=== PATIENT | male | born 1955 | race Caucasian/White ===

== ENCOUNTER 2017-12-09 22:41 | Emergency (ER) | payer OTHER ==
[~2017-12-09] VITALS: Ht 172.7 cm; Wt 77.0 kg
[2017-12-09 23:46] VITALS: BP 178/81; PULSE 66; RESP 18; TEMP 98.2; O2SAT 97
[2017-12-10] MEDS ORDERED: OMEP40CA2 (00:20)
[2017-12-10] MEDS ORDERED: TRAZ50TA12 PO (00:20)
[2017-12-10] MEDS ORDERED: LEVO50TA4 PO (00:20)
[2017-12-10] MEDS ORDERED: NALT50TA3 PO (00:20)
[2017-12-10] MEDS ORDERED: MELA5 PO (00:20)
[2017-12-10 00:31] LABS: AUTOMATED NEUTROPHIL # 2.5 TH/MM3 (1.8-7.7); BASOPHIL % 0.9 % (0.0-2.0); EOSINOPHIL # 0.1 TH/MM3 (0-0.4); EOSINOPHIL % 1.6 % (0.0-4.0); HEMOGLOBIN 12.2 GM/DL (13.0-17.0); LYMPH % 38.7 % (9.0-44.0); LYMPHOCYTE # 1.8 TH/MM3 (1.0-4.8); MEAN CORPUSCULAR HEMOGLOBIN 25.6 PG (27.0-34.0); MEAN CORPUSCULAR HGB CONC 32.8 % (32.0-36.0); MEAN PLATELET VOLUME 7.2 FL (7.0-11.0); MONO % 5.3 % (0.0-8.0); MONOCYTE # 0.2 TH/MM3 (0-0.9); NEUT % 53.5 % (16.0-70.0); PLATELET COUNT 321 TH/MM3 (150-450); RED BLOOD COUNT 4.74 MIL/MM3 (4.50-5.90); RED CELL DISTRIBUTION WIDTH 17.2 % (11.6-17.2); WHITE BLOOD COUNT 4.7 TH/MM3 (4.0-11.0)
[2017-12-10 00:42] LABS: BILIRUBIN, URINE NEG (NEG); BLOOD, URINE NEG (NEG); GLUCOSE,URINE NEG (NEG); KETONE, URINE NEG (NEG); MUCUS URINE FEW /lpf (OCC); NITRITE,URINE NEG (NEG); PH, URINE 5.5 (5.0-8.5); SQUAMOUS EPITHELIAL CELL URINE <1 /hpf (0-5); TRANSITIONAL EPI CELLS, URINE <1 /hpf; URINE COLOR YELLOW (YELLW/STRAW); URINE LEUKOCYTE ESTERASE NEG (NEG)
[2017-12-10 00:53] LABS: ALBUMIN 3.9 GM/DL (3.4-5.0); ALT (GPT) 21 U/L (12-78); AST (GOT) 23 U/L (15-37); BICARBONATE 25.4 MEQ/L (21.0-32.0); BLOOD UREA NITROGEN 7 MG/DL (7-18); CALCIUM 8.1 MG/DL (8.5-10.1); CHLORIDE 104 MEQ/L (98-107); CREATININE 0.86 MG/DL (0.60-1.30); GLOMERULAR FILTRATION RATE 91 ML/MIN (>89); GLUCOSE,RANDOM 94 MG/DL (74-106); SODIUM (NA) 141 MEQ/L (136-145)
[2017-12-10 00:57] LABS: ALKALINE PHOSPHATASE 60 U/L (45-117); TOTAL BILIRUBIN ADULT 0.2 MG/DL (0.2-1.0); TOTAL PROTEIN 7.6 GM/DL (6.4-8.2)
[2017-12-10 05:47] VITALS: BP 128/79; PULSE 58; RESP 20; O2SAT 99
--- NOTE | 2017-12-10 05:49 | PD ---
HPI Chief Complaint: Psychiatric Symptoms Time Seen by Provider: 05:40 Travel History International Travel<30 days: No Contact w/Intl Traveler<30days: No Traveled to known affect area: No History of Present Illness HPI 62-year-old male presents under Ortega act initiated by the [employer]. According to his paperwork the patient made statements today that he wanted to . The patient reports that he recently moved here from [place]. Today he drinks heavily, approximately 1.5 pints of vodka. He was involved in an argument with his son while he was intoxicated. He does report passive suicidal thoughts earlier today but none currently. Denies any illicit drug use. Denies any hallucinations. He has no medical complaints at this time. [facility] Past Medical History Medical History: Denies Significant Hx Diminished Hearing: No ?: Not Past Surgical History Surgical History: No Previous Surgery Social History Alcohol Use: Yes Tobacco Use: No Substance Use: No Allergies-Medications (Allergen,Severity, Reaction): Coded Allergies: No Known Allergies (Unverified , 12/09/17) Reported Meds & Prescriptions Reported Meds & Active Scripts Active Reported Trazodone (Trazodone HCl) 50 Mg Tab 50 Mg PO HS Naltrexone (Naltrexone HCl) 50 Mg Tab 50 Mg PO DAILY Omeprazole 40 Mg Cap 40 Mg BID Levothyroxine (Levothyroxine Sodium) 50 Mcg Tab 50 Mcg PO DAILY Melatonin 5 Mg Tab 5 Mg PO HS Review of Systems Except as stated in HPI: all other systems reviewed are Neg Physical Exam Narrative GENERAL: Well-developed well-nourished male in no acute distress SKIN: Warm and dry. HEAD: Atraumatic. Normocephalic. EYES: Pupils equal and round. No scleral icterus. No injection or drainage. ENT: No nasal bleeding or discharge. Mucous membranes pink and moist. NECK: Trachea midline. No JVD. CARDIOVASCULAR: Regular rate and rhythm. No murmur appreciated. RESPIRATORY: No accessory muscle use. Clear to auscultation. Breath sounds equal bilaterally. GASTROINTESTINAL: Abdomen soft, non-tender, nondistended. Hepatic and splenic margins not palpable. MUSCULOSKELETAL: No obvious deformities. No clubbing. No cyanosis. No edema. NEUROLOGICAL: Awake and alert. No obvious cranial nerve deficits. Motor grossly within normal limits. Normal speech. PSYCHIATRIC: Appropriate mood and affect; insight and judgment normal. Data Data Last Documented VS Vital Signs Date Time Temp Pulse Resp B/P (MAP) Pulse Ox O2 Delivery O2 Flow Rate FiO2 12/09/17 23:46 98.2 66 18 178/81 (113) 97 Orders Orders Complete Blood Count With Diff (12/09/17 23:52) Comprehensive Metabolic Panel (12/09/17 23:52) Urinalysis - C+S If Indicated (12/09/17 23:52) Psych Screen (12/09/17 23:52) Drug Screen, Random Urine (12/09/17 23:52) Alcohol (Ethanol) (12/09/17 23:52) Labs Laboratory Tests Test 12/10/17 00:07 White Blood Count 4.7 TH/MM3 Red Blood Count 4.74 MIL/MM3 Hemoglobin 12.2 GM/DL Hematocrit 37.0 % Mean Corpuscular Volume 78.0 FL Mean Corpuscular Hemoglobin 25.6 PG Mean Corpuscular Hemoglobin Concent 32.8 % Red Cell Distribution Width 17.2 % Platelet Count 321 TH/MM3 Mean Platelet Volume 7.2 FL Neutrophils (%) (Auto) 53.5 % Lymphocytes (%) (Auto) 38.7 % Monocytes (%) (Auto) 5.3 % Eosinophils (%) (Auto) 1.6 % Basophils (%) (Auto) 0.9 % Neutrophils # (Auto) 2.5 TH/MM3 Lymphocytes # (Auto) 1.8 TH/MM3 Monocytes # (Auto) 0.2 TH/MM3 Eosinophils # (Auto) 0.1 TH/MM3 Basophils # (Auto) 0.0 TH/MM3 CBC Comment DIFF FINAL Differential Comment Urine Color YELLOW Urine Turbidity CLEAR Urine pH 5.5 Urine Specific [place] 1.009 Urine Protein NEG mg/dL Urine Glucose (UA) NEG mg/dL Urine Ketones NEG mg/dL Urine Occult Blood NEG Urine Nitrite NEG Urine Bilirubin NEG Urine Urobilinogen LESS THAN 2.0 MG/DL Urine Leukocyte Esterase NEG Urine RBC 1 /hpf Urine Squamous Epithelial Cells <1 /hpf Urine Transitional Epithelial Cells <1 /hpf Urine Mucus FEW /lpf Microscopic Urinalysis Comment CULT NOT INDICATED Blood Urea Nitrogen 7 MG/DL Creatinine 0.86 MG/DL Random Glucose 94 MG/DL Total Protein 7.6 GM/DL Albumin 3.9 GM/DL Calcium Level 8.1 MG/DL Alkaline Phosphatase 60 U/L Aspartate Amino Transf (AST/SGOT) 23 U/L Alanine Aminotransferase (ALT/SGPT) 21 U/L Total Bilirubin 0.2 MG/DL Sodium Level 141 MEQ/L Potassium Level 3.9 MEQ/L Chloride Level 104 MEQ/L Carbon Dioxide Level 25.4 MEQ/L Anion Gap 12 MEQ/L Estimat Glomerular Filtration Rate 91 ML/MIN Urine Opiates Screen NEG Urine Barbiturates Screen NEG Urine Amphetamines Screen NEG Urine Benzodiazepines Screen NEG Urine Cocaine Screen NEG Urine Cannabinoids Screen NEG Ethyl Alcohol Level 291 MG/DL MDM Medical Decision Making Medical Screen Exam Complete: Yes Emergency Medical Condition: Yes Medical Record Reviewed: Yes Differential Diagnosis Substance-induced mood disorder, acute psychosis, major depressive disorder, depressive disorder not otherwise specified Narrative Course Mental health screening discussed with the patient. Psychiatric screen ordered. Lab work is notable for an alcohol level of 291. The patient is medically cleared for psychiatric disposition. Diagnosis Primary Impression: Alcohol abuse Sumanth Ruvalcaba Dec 10, 2017 05:49
[2017-12-10 10:00] VITALS: BP 135/65; PULSE 62; RESP 20; O2SAT 99
[2017-12-10 13:34] VITALS: BP 156/92; PULSE 72; RESP 18; O2SAT 96
--- NOTE | 2017-12-10 14:24 | PD ---
History of Present Illness Chief Complaint: Psychiatric Symptoms Time Seen by Provider: 14:15 Travel History International Travel<30 Days: No Contact w/Intl Traveler<30days: No Known affected area: No Legal Status Legal Status: Sell My Timeshare NOW Act History of Present Illness: History of Present Illness HPI 62-year-old male with no psychiatric history and history of alcohol dependence who presents under Ortega act initiated by the Police Department. According to his paperwork the patient made statements today that he wanted to . This in context of an argument with his son over the patient's continued use of alcohol. After the argument the patient was asked to leave the house. Patient admits that he had been drinking and his blood alcohol level upon arrival to the ED was 291. patient was allowed to sober up clinically. He presented no behavioral concerns and no suicidality. Electronic medical record is reviewed. No previous contact with [facility] psychiatry. The patient is seen in main ED. He is clinically sober. His speech is clear logical and coherent. There is no signs of withdrawal. There is no evidence of any psychosis, no stella or hypomania. He denies significant symptoms of depression. He states "apparently I said something about hurting myself but I don't remember much of what I said". He denies any suicidal or homicidal ideation, intent or plan. He states that he is on a waiting list for a home in [place] but the meanwhile he will like to look into sober living facilities here in [place]. In terms of his alcohol use he reports that he has a long history of alcohol abuse but that he has been sober on and off for the past several years. He states that he attends AA but continues to drink. He denies that he drinks on a daily basis. [facility] Past Medical History Medical History: Denies Significant Hx Diminished Hearing: No ?: Not Past Surgical History Surgical History: No Previous Surgery Psychiatric History Psychiatric History Hx Psychiatric Treatment: No previous psychiatric history History of Inpatient Treatment: No Guns or firearms in home: No Social History Born and raised in [place]. Moved to the area couple months ago to stay with his son. He works electronic parts salesperson doing odd jobs. . Hx Alcohol Use: Yes Hx Tobacco Use: No Hx Substance Use: No Substance Use Type: Alcohol Hx of Substance Use Treatment: Yes Family Psychiatric History Negative Allergies-Medications (Allergen,Severity, Reaction): Coded Allergies: No Known Allergies (Unverified , 12/09/17) Reported Meds & Prescriptions Reported Meds & Active Scripts Active Reported Trazodone (Trazodone HCl) 50 Mg Tab 50 Mg PO HS Naltrexone (Naltrexone HCl) 50 Mg Tab 50 Mg PO DAILY Omeprazole 40 Mg Cap 40 Mg BID Levothyroxine (Levothyroxine Sodium) 50 Mcg Tab 50 Mcg PO DAILY Melatonin 5 Mg Tab 5 Mg PO HS Review of Systems Psychiatric: DENIES: Anxiety, Confusion, Mood changes, Depression, Hallucinations, Agitation, Suicidal Ideation, Homicidal Ideation, Delusions Except as stated in HPI: all other systems reviewed are Neg Mental Status Examination Appearance: Appropriate Consciousness: Alert Motor Activity: Other (patient remained in bed) Speech: Unremarkable Language: Adequate Fund of Knowledge: Adequate Attention and Concentration: Adequate Memory: Unremarkable Mood: Appropriate Affect: Appropriate Thought Process & Associations: Intact, Logical, Goal directed Thought Content: Appropriate Hallucination Type: None Delusion Type: None Suicidal Ideation: No Suicidal Plan: No Suicidal Intention: No Homicidal Ideation: No Homicidal Plan: No Homicidal Intention: No Insight: Fair Judgment: Adequate MDM Medical Decision Making Medical Record Reviewed: Yes Assessment/Plan 62-year-old male with no psychiatric history and history of alcohol dependence who presents under Ortega act initiated by the Police Department. According to his paperwork the patient made statements today that he wanted to . This in context of an argument with his son over the patient's continued use of alcohol. After the argument the patient was asked to leave the house. Patient admits that he had been drinking and his blood alcohol level upon arrival to the ED was 291. patient was allowed to sober up clinically. He presented no behavioral concerns and no suicidality. Clinically sober. Not psychotic. Not suicdal. Wants substance abuse treatment. He would like referrals for sober living facilities as well as referral for where he can continue his Vivitrol injections. I have asked the case manager specialist to meet with him to provide him these referrals. Patient at this time does not meet criteria for Ortega act. Does not present evidence of any unstable mental illness. He is future oriented. He is wanting treatment. Lift Ortega act. Psychiatrically clear for discharge from the ED. Orders Orders Complete Blood Count With Diff (12/09/17 23:52) Comprehensive Metabolic Panel (12/09/17 23:52) Urinalysis - C+S If Indicated (12/09/17 23:52) Psych Screen (12/09/17 23:52) Drug Screen, Random Urine (12/09/17 23:52) Alcohol (Ethanol) (12/09/17 23:52) Diet Regular Basic (12/10/17 Breakfast) Results Vital Signs Date Time Temp Pulse Resp B/P (MAP) Pulse Ox O2 Delivery O2 Flow Rate FiO2 12/10/17 13:34 72 18 156/92 (113) 96 Room Air 12/10/17 10:00 62 20 135/65 (88) 99 Room Air 12/10/17 05:47 58 20 128/79 (95) 99 Room Air 12/09/17 23:46 98.2 66 18 178/81 (113) 97 Laboratory Tests Test 12/10/17 00:07 White Blood Count 4.7 Red Blood Count 4.74 Hemoglobin 12.2 Hematocrit 37.0 Mean Corpuscular Volume 78.0 Mean Corpuscular Hemoglobin 25.6 Mean Corpuscular Hemoglobin Concent 32.8 Red Cell Distribution Width 17.2 Platelet Count 321 Mean Platelet Volume 7.2 Neutrophils (%) (Auto) 53.5 Lymphocytes (%) (Auto) 38.7 Monocytes (%) (Auto) 5.3 Eosinophils (%) (Auto) 1.6 Basophils (%) (Auto) 0.9 Neutrophils # (Auto) 2.5 Lymphocytes # (Auto) 1.8 Monocytes # (Auto) 0.2 Eosinophils # (Auto) 0.1 Basophils # (Auto) 0.0 CBC Comment DIFF FINAL Differential Comment Urine Color YELLOW Urine Turbidity CLEAR Urine pH 5.5 Urine Specific [place] 1.009 Urine Protein NEG Urine Glucose (UA) NEG Urine Ketones NEG Urine Occult Blood NEG Urine Nitrite NEG Urine Bilirubin NEG Urine Urobilinogen LESS THAN 2.0 Urine Leukocyte Esterase NEG Urine RBC 1 Urine Squamous Epithelial Cells <1 Urine Transitional Epithelial Cells <1 Urine Mucus FEW Microscopic Urinalysis Comment CULT NOT INDICATED Blood Urea Nitrogen 7 Creatinine 0.86 Random Glucose 94 Total Protein 7.6 Albumin 3.9 Calcium Level 8.1 Alkaline Phosphatase 60 Aspartate Amino Transf (AST/SGOT) 23 Alanine Aminotransferase (ALT/SGPT) 21 Total Bilirubin 0.2 Sodium Level 141 Potassium Level 3.9 Chloride Level 104 Carbon Dioxide Level 25.4 Anion Gap 12 Estimat Glomerular Filtration Rate 91 Urine Opiates Screen NEG Urine Barbiturates Screen NEG Urine Amphetamines Screen NEG Urine Benzodiazepines Screen NEG Urine Cocaine Screen NEG Urine Cannabinoids Screen NEG Ethyl Alcohol Level 291 Diagnosis Primary Impression: Alcohol abuse Psychiatrically Cleared: Yes Med/ Other Pt Specific Info: No Meds Exist/No RX given Disposition: 01 DISCHARGE HOME Condition: Stable Jacqueline Cabrera [facility] Dec 10, 2017 14:24
--- NOTE | 2017-12-10 14:31 | PD ---
Physical Exam Date Seen by Provider: Dec 10, 2017 Time Seen by Provider: 14:30 Narrative 62-year-old male previously Ortega acted and medically cleared for psychiatric evaluation, has been seen by psychiatric staff and deemed psychiatrically stable for discharge at this time. Patient remains medically stable for discharge at this time. Follow-up is based on psychiatric note. Data Data Last Documented VS Vital Signs Date Time Temp Pulse Resp B/P (MAP) Pulse Ox O2 Delivery O2 Flow Rate FiO2 12/10/17 13:34 72 18 156/92 (113) 96 Room Air 12/09/17 23:46 98.2 Orders Orders Complete Blood Count With Diff (12/09/17 23:52) Comprehensive Metabolic Panel (12/09/17 23:52) Urinalysis - C+S If Indicated (12/09/17 23:52) Psych Screen (12/09/17 23:52) Drug Screen, Random Urine (12/09/17 23:52) Alcohol (Ethanol) (12/09/17 23:52) Diet Regular Basic (12/10/17 Breakfast) Labs Laboratory Tests Test 12/10/17 00:07 White Blood Count 4.7 TH/MM3 Red Blood Count 4.74 MIL/MM3 Hemoglobin 12.2 GM/DL Hematocrit 37.0 % Mean Corpuscular Volume 78.0 FL Mean Corpuscular Hemoglobin 25.6 PG Mean Corpuscular Hemoglobin Concent 32.8 % Red Cell Distribution Width 17.2 % Platelet Count 321 TH/MM3 Mean Platelet Volume 7.2 FL Neutrophils (%) (Auto) 53.5 % Lymphocytes (%) (Auto) 38.7 % Monocytes (%) (Auto) 5.3 % Eosinophils (%) (Auto) 1.6 % Basophils (%) (Auto) 0.9 % Neutrophils # (Auto) 2.5 TH/MM3 Lymphocytes # (Auto) 1.8 TH/MM3 Monocytes # (Auto) 0.2 TH/MM3 Eosinophils # (Auto) 0.1 TH/MM3 Basophils # (Auto) 0.0 TH/MM3 CBC Comment DIFF FINAL Differential Comment Urine Color YELLOW Urine Turbidity CLEAR Urine pH 5.5 Urine Specific [place] 1.009 Urine Protein NEG mg/dL Urine Glucose (UA) NEG mg/dL Urine Ketones NEG mg/dL Urine Occult Blood NEG Urine Nitrite NEG Urine Bilirubin NEG Urine Urobilinogen LESS THAN 2.0 MG/DL Urine Leukocyte Esterase NEG Urine RBC 1 /hpf Urine Squamous Epithelial Cells <1 /hpf Urine Transitional Epithelial Cells <1 /hpf Urine Mucus FEW /lpf Microscopic Urinalysis Comment CULT NOT INDICATED Blood Urea Nitrogen 7 MG/DL Creatinine 0.86 MG/DL Random Glucose 94 MG/DL Total Protein 7.6 GM/DL Albumin 3.9 GM/DL Calcium Level 8.1 MG/DL Alkaline Phosphatase 60 U/L Aspartate Amino Transf (AST/SGOT) 23 U/L Alanine Aminotransferase (ALT/SGPT) 21 U/L Total Bilirubin 0.2 MG/DL Sodium Level 141 MEQ/L Potassium Level 3.9 MEQ/L Chloride Level 104 MEQ/L Carbon Dioxide Level 25.4 MEQ/L Anion Gap 12 MEQ/L Estimat Glomerular Filtration Rate 91 ML/MIN Urine Opiates Screen NEG Urine Barbiturates Screen NEG Urine Amphetamines Screen NEG Urine Benzodiazepines Screen NEG Urine Cocaine Screen NEG Urine Cannabinoids Screen NEG Ethyl Alcohol Level 291 MG/DL MDM Medical Record Reviewed: Yes Supervised Visit with [facility]: Yes Narrative Course 62-year-old male previously Ortega acted and medically cleared for psychiatric evaluation, has been seen by psychiatric staff and deemed psychiatrically stable for discharge at this time. Patient remains medically stable for discharge at this time. Follow-up is based on psychiatric note. Diagnosis Primary Impression: Alcohol abuse Patient Instructions: Abuse of Alcohol (ED), General Instructions Disposition: 01 DISCHARGE HOME Condition: Stable Leonides Rodriguez Dec 10, 2017 14:31
== END 2017-12-10 15:02 | disposition home or self-care (01) ==
LOC: NEPD 22:41
DX: F10.10 Alcohol abuse, uncomplicated (principal); R45.851 Suicidal ideations; Z79.899 Other long term (current) drug therapy
CPT/HCPCS: 80053; 80307; 81001; 85025; 99283

== ENCOUNTER 2018-02-09 22:19 | Emergency (ER) | payer MEDICAID ==
[~2018-02-09 22:19] MED LIST: LEVO50TA4 PO; MELA5 PO; NALT50TA3 PO; OMEP40CA2; TRAZ50TA12 PO
[2018-02-09 22:41] VITALS: BP 114/75; PULSE 103; RESP 18; TEMP 97.6; O2SAT 98
--- NOTE | 2018-02-10 00:06 | PD ---
HPI Chief Complaint: Alcohol/Drug Intoxication Time Seen by Provider: 23:53 Travel History International Travel<30 days: No Contact w/Intl Traveler<30days: No Traveled to known affect area: No History of Present Illness HPI 63yo M with PMH of alcohol abuse, depression, hypothyroidism here stating he wants to kill himself and he is trying to drink himself to . Pt is with his friends and they are very worried about him. Pt denies any fall, chest pain , sob, abdominal pain, focal weakness or numbness. Pt has been drinking alcohol and vomited. PFSH Past Medical History Diminished Hearing: No Social History Alcohol Use: Yes Tobacco Use: No Substance Use: No Allergies-Medications (Allergen,Severity, Reaction): Coded Allergies: No Known Allergies (Unverified , 02/09/18) Reported Meds & Prescriptions Reported Meds & Active Scripts Active Reported Trazodone (Trazodone HCl) 50 Mg Tab 50 Mg PO HS Naltrexone (Naltrexone HCl) 50 Mg Tab 50 Mg PO DAILY Omeprazole 40 Mg Cap 40 Mg BID Levothyroxine (Levothyroxine Sodium) 50 Mcg Tab 50 Mcg PO DAILY Melatonin 5 Mg Tab 5 Mg PO HS Review of Systems Except as stated in HPI: all other systems reviewed are Neg Physical Exam Narrative GENERAL: 63yo M not in distress. SKIN: Focused skin assessment warm/dry. HEAD: Atraumatic. Normocephalic. EYES: Pupils equal and round. No scleral icterus. No injection or drainage. ENT: No nasal bleeding or discharge. Mucous membranes pink and moist. NECK: Trachea midline. No JVD. CARDIOVASCULAR: Regular rate and rhythm. No murmur appreciated. RESPIRATORY: No accessory muscle use. Clear to auscultation. Breath sounds equal bilaterally. GASTROINTESTINAL: Abdomen soft, non-tender, nondistended. No rebound tenderness or guarding. MUSCULOSKELETAL: No obvious deformities. No clubbing. No cyanosis. No edema. NEUROLOGICAL: Awake and alert. No obvious cranial nerve deficits. Motor grossly within normal limits in all extremities. Sensation equal. Normal speech. Data Data Last Documented VS Vital Signs Date Time Temp Pulse Resp B/P (MAP) Pulse Ox O2 Delivery O2 Flow Rate FiO2 02/10/18 05:43 97.5 89 17 119/69 (86) 98 Room Air Orders Orders Complete Blood Count With Diff (02/10/18 00:01) Thyroid Stimulating Hormone (02/10/18 00:01) Basic Metabolic Panel (Bmp) (02/10/18 00:01) Psych Screen (02/10/18 00:) Drug Screen, Random Urine (02/10/18 00:01) Alcohol (Ethanol) (02/10/18 00:01) Salicylates (Aspirin) (02/10/18 00:01) Tylenol (Acetaminophen) (02/10/18 00:01) Ondansetron Odt (Zofran Odt) (02/10/18 00:15) Sodium Chlor 0.9% 1000 Ml Inj (Ns 1000 M (02/10/18 00:15) Thiamine Inj (Thiamine Inj) (02/10/18 00:15) Diet Regular Basic (02/10/18 Breakfast) Diet Regular Basic (02/10/18 Lunch) Diet Regular Basic (02/10/18 Dinner) Labs Laboratory Tests Test 02/10/18 00:35 White Blood Count 5.7 TH/MM3 Red Blood Count 4.72 MIL/MM3 Hemoglobin 12.9 GM/DL Hematocrit 39.0 % Mean Corpuscular Volume 82.7 FL Mean Corpuscular Hemoglobin 27.3 PG Mean Corpuscular Hemoglobin Concent 33.0 % Red Cell Distribution Width 18.1 % Platelet Count 212 TH/MM3 Mean Platelet Volume 7.6 FL Neutrophils (%) (Auto) 62.2 % Lymphocytes (%) (Auto) 27.1 % Monocytes (%) (Auto) 8.0 % Eosinophils (%) (Auto) 2.0 % Basophils (%) (Auto) 0.7 % Neutrophils # (Auto) 3.5 TH/MM3 Lymphocytes # (Auto) 1.5 TH/MM3 Monocytes # (Auto) 0.5 TH/MM3 Eosinophils # (Auto) 0.1 TH/MM3 Basophils # (Auto) 0.0 TH/MM3 CBC Comment DIFF FINAL Differential Comment Blood Urea Nitrogen 13 MG/DL Creatinine 0.74 MG/DL Random Glucose 102 MG/DL Calcium Level 8.8 MG/DL Sodium Level 143 MEQ/L Potassium Level 3.2 MEQ/L Chloride Level 99 MEQ/L Carbon Dioxide Level 31.7 MEQ/L Anion Gap 12 MEQ/L Estimat Glomerular Filtration Rate 108 ML/MIN Thyroid Stimulating Hormone 3rd Gen 1.640 uIU/ML Salicylates Level LESS THAN 1.7 MG/DL Acetaminophen Level LESS THAN 2.0 MCG/ML Ethyl Alcohol Level 381 MG/DL MDM Medical Decision Making Medical Screen Exam Complete: Yes Emergency Medical Condition: Yes Differential Diagnosis Alcohol abuse vs. depression vs. suicidal ideations vs. malingering Narrative Course 63yo M with alcohol abuse here stating he wants to kill himself. Said if he leaves, he will kill himself. Pt place under Ortega Act. Pt is nauseous and given zofran, thiamine and NS IVF. Sign out to PA to follow up labs and medically clear pt for psych. Diagnosis Primary Impression: Alcohol abuse Kristina Martinez DO February 10, 2018 00:06
[2018-02-10] MEDS ORDERED: ONDANSETRON ODT 4 MG TAB PO ONE (00:15)
[2018-02-10] MEDS ORDERED: THIAMINE INJ 100 MG in SODIUM CHLORIDE 0.9% INJ 100 ML IV ONE (00:15)
[2018-02-10] MEDS ORDERED: SODIUM CHLOR 0.9% 1000 ML INJ 1,000 ML IV ONE (00:15)
[2018-02-10 00:54] LABS: AUTOMATED NEUTROPHIL # 3.5 TH/MM3 (1.8-7.7); BASOPHIL % 0.7 % (0.0-2.0); EOSINOPHIL # 0.1 TH/MM3 (0-0.4); HEMOGLOBIN 12.9 GM/DL (13.0-17.0); LYMPH % 27.1 % (9.0-44.0); LYMPHOCYTE # 1.5 TH/MM3 (1.0-4.8); MEAN CELL VOLUME 82.7 FL (80.0-100.0); MEAN CORPUSCULAR HEMOGLOBIN 27.3 PG (27.0-34.0); MEAN PLATELET VOLUME 7.6 FL (7.0-11.0); MONOCYTE # 0.5 TH/MM3 (0-0.9); NEUT % 62.2 % (16.0-70.0); PLATELET COUNT 212 TH/MM3 (150-450); RED BLOOD COUNT 4.72 MIL/MM3 (4.50-5.90); RED CELL DISTRIBUTION WIDTH 18.1 % (11.6-17.2); WHITE BLOOD COUNT 5.7 TH/MM3 (4.0-11.0)
[2018-02-10 01:07] LABS: BICARBONATE 31.7 MEQ/L (21.0-32.0); BLOOD UREA NITROGEN 13 MG/DL (7-18); CALCIUM 8.8 MG/DL (8.5-10.1); CHLORIDE 99 MEQ/L (98-107); CREATININE 0.74 MG/DL (0.60-1.30); GLOMERULAR FILTRATION RATE 108 ML/MIN (>89); GLUCOSE,RANDOM 102 MG/DL (74-106); SODIUM (NA) 143 MEQ/L (136-145)
[2018-02-10 01:19] LABS: ACETAMINOPHEN LESS THAN 2.0 MCG/ML (10.0-30.0)
--- NOTE | 2018-02-10 01:28 | PD ---
Physical Exam Date Seen by Provider: February 10, 2018 Time Seen by Provider: 01:26 Data Data Last Documented VS Vital Signs Date Time Temp Pulse Resp B/P (MAP) Pulse Ox O2 Delivery O2 Flow Rate FiO2 02/09/18 22:41 97.6 103 18 114/75 (88) 98 Orders Orders Complete Blood Count With Diff (02/10/18 00:01) Thyroid Stimulating Hormone (02/10/18 00:01) Basic Metabolic Panel (Bmp) (02/10/18 00:01) Psych Screen (02/10/18 00:01) Drug Screen, Random Urine (02/10/18 00:01) Alcohol (Ethanol) (02/10/18 00:01) Salicylates (Aspirin) (02/10/18 00:01) Tylenol (Acetaminophen) (02/10/18 00:01) Ondansetron Odt (Zofran Odt) (02/10/18 00:15) Sodium Chlor 0.9% 1000 Ml Inj (Ns 1000 M (02/10/18 00:15) Thiamine Inj (Thiamine Inj) (02/10/18 00:15) Labs Laboratory Tests Test 02/10/18 00:35 White Blood Count 5.7 TH/MM3 Red Blood Count 4.72 MIL/MM3 Hemoglobin 12.9 GM/DL Hematocrit 39.0 % Mean Corpuscular Volume 82.7 FL Mean Corpuscular Hemoglobin 27.3 PG Mean Corpuscular Hemoglobin Concent 33.0 % Red Cell Distribution Width 18.1 % Platelet Count 212 TH/MM3 Mean Platelet Volume 7.6 FL Neutrophils (%) (Auto) 62.2 % Lymphocytes (%) (Auto) 27.1 % Monocytes (%) (Auto) 8.0 % Eosinophils (%) (Auto) 2.0 % Basophils (%) (Auto) 0.7 % Neutrophils # (Auto) 3.5 TH/MM3 Lymphocytes # (Auto) 1.5 TH/MM3 Monocytes # (Auto) 0.5 TH/MM3 Eosinophils # (Auto) 0.1 TH/MM3 Basophils # (Auto) 0.0 TH/MM3 CBC Comment DIFF FINAL Differential Comment Blood Urea Nitrogen 13 MG/DL Creatinine 0.74 MG/DL Random Glucose 102 MG/DL Calcium Level 8.8 MG/DL Sodium Level 143 MEQ/L Potassium Level 3.2 MEQ/L Chloride Level 99 MEQ/L Carbon Dioxide Level 31.7 MEQ/L Anion Gap 12 MEQ/L Estimat Glomerular Filtration Rate 108 ML/MIN Thyroid Stimulating Hormone 3rd Gen 1.640 uIU/ML Salicylates Level LESS THAN 1.7 MG/DL Acetaminophen Level LESS THAN 2.0 MCG/ML Ethyl Alcohol Level 381 MG/DL MDM Medical Record Reviewed: Yes Supervised Visit with ALEC: Yes Interpretation(s) Laboratory Tests Test 02/10/18 00:35 White Blood Count 5.7 TH/MM3 Red Blood Count 4.72 MIL/MM3 Hemoglobin 12.9 GM/DL Hematocrit 39.0 % Mean Corpuscular Volume 82.7 FL Mean Corpuscular Hemoglobin 27.3 PG Mean Corpuscular Hemoglobin Concent 33.0 % Red Cell Distribution Width 18.1 % Platelet Count 212 TH/MM3 Mean Platelet Volume 7.6 FL Neutrophils (%) (Auto) 62.2 % Lymphocytes (%) (Auto) 27.1 % Monocytes (%) (Auto) 8.0 % Eosinophils (%) (Auto) 2.0 % Basophils (%) (Auto) 0.7 % Neutrophils # (Auto) 3.5 TH/MM3 Lymphocytes # (Auto) 1.5 TH/MM3 Monocytes # (Auto) 0.5 TH/MM3 Eosinophils # (Auto) 0.1 TH/MM3 Basophils # (Auto) 0.0 TH/MM3 CBC Comment DIFF FINAL Differential Comment Blood Urea Nitrogen 13 MG/DL Creatinine 0.74 MG/DL Random Glucose 102 MG/DL Calcium Level 8.8 MG/DL Sodium Level 143 MEQ/L Potassium Level 3.2 MEQ/L Chloride Level 99 MEQ/L Carbon Dioxide Level 31.7 MEQ/L Anion Gap 12 MEQ/L Estimat Glomerular Filtration Rate 108 ML/MIN Thyroid Stimulating Hormone 3rd Gen 1.640 uIU/ML Salicylates Level LESS THAN 1.7 MG/DL Acetaminophen Level LESS THAN 2.0 MCG/ML Ethyl Alcohol Level 381 MG/DL Differential Diagnosis MDM: High Differential diagnoses: Schizophrenia, schizoaffective disorder, bipolar, anxiety, depression, adjustment reaction, mood disorder NOS, ODD, depressive disorder NOS, dementia, dementia with agitation, psychosis NOS, substance induced mood disorder, DMDD, Asperger syndrome, infection,electrolyte abnormality, malingering. Narrative Course Mental health screening discussed with the patient. Psychiatric screen ordered. This is a patient I was asked to review the laboratory test. His potassium 3.2. He has a alcohol of 381. The patient is considered medically stable for psychiatric admission. This is medical clearance for psychiatric admission, alcohol intoxication Diagnosis Primary Impression: Medical clearance for psychiatric admission Additional Impression: Alcohol intoxication Condition: Stable Manuel Mata February 10, 2018 01:28
[2018-02-10 05:43] VITALS: BP 119/69; PULSE 89; RESP 17; TEMP 97.5; O2SAT 98
[2018-02-10 17:32] VITALS: BP 149/86; PULSE 84; RESP 18; O2SAT 97
[2018-02-10] MEDS ORDERED: FLUMAZENIL 0.5 MG/5 ML VIAL IV PUSH PRN (19:15)
[2018-02-10] MEDS ORDERED: LORazepam 1 MG TAB PO PRN (19:15)
[2018-02-10] MEDS ORDERED: LORazepam 2 MG/ML VIAL IV PUSH PRN ×4 (19:15)
[2018-02-10] MEDS ORDERED: LORazepam 2 MG TAB PO PRN (19:15)
[2018-02-11 00:10] VITALS: BP 146/82; PULSE 76; RESP 18; O2SAT 96
[2018-02-11 06:14] VITALS: BP 144/86; PULSE 98; RESP 18; O2SAT 97
--- NOTE | 2018-02-11 10:43 | PD ---
History of Present Illness Chief Complaint: Alcohol/Drug Intoxication Time Seen by Provider: 10:25 Travel History International Travel<30 Days: No Contact w/Intl Traveler<30days: No Known affected area: No Legal Status Legal Status: Involuntary Jordan Act Signed By: Toby Ortega Act Comment: Dr. Martinez [facility] [place] ED History of Present Illness: History of Present Illness HPI 63-year-old , , homeless male with history of alcohol abuse who in context of relapse and being terminated from [facility] and while intoxicated presented to the emergency department accompanied by his friends reporting he had thoughts of either jumping in front of a train or jumping from the intrastate. Patient was placed under an involuntary status by ED provider. On arrival to [facility] ED he states he wants to kill himself and he is trying to drink himself to . His blood alcohol level on arrival to the ED was 381. Patient was allowed to sober up clinically in controlled environment. There was no evidence of any suicidality or homicidality while under observation. EMR is reviewed. Patient was last seen here in in December of 2017 was discharge and he was planning on being admitted to a substance abuse treatment facility in [place] . Patient is seen. Leonides medical case manager is present. The patient is alert, oriented, clinically sober with no evidence of any withdrawal symptoms. He is engaging and cooperative. There is no evidence of any psychosis, no stella,. Patient's mood is euthymic. He tells me that he has been in the past 4 weeks that a sober living house but that he was kicked out of that house a few days ago due to his continued drinking. He has been homeless since leaving the sober living home. Patient wants to return to that living sober home or any other facility at this time. There is no suicidal or homicidal ideation, intent or plan. Remainder of psychiatric review of system is negative. PFSH Past Medical History Diminished Hearing: No Psychiatric History Psychiatric History Hx Psychiatric Treatment: NONE. No previous suicide attempt. No history of self-injurious behavior. 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 Moved to the area approximately 4 months ago. Currently homeless. Had been working at a restaurant. Hx Alcohol Use: Yes Hx Tobacco Use: No Hx Substance Use: Yes Substance Use Type: Alcohol Hx of Substance Use Treatment: No Family Psychiatric History Negative Allergies-Medications (Allergen,Severity, Reaction): Coded Allergies: No Known Allergies (Unverified , 02/09/18) Reported Meds & Prescriptions Reported Meds & Active Scripts Active Reported Trazodone (Trazodone HCl) 50 Mg Tab 50 Mg PO HS Naltrexone (Naltrexone HCl) 50 Mg Tab 50 Mg PO DAILY Omeprazole 40 Mg Cap 40 Mg BID Levothyroxine (Levothyroxine Sodium) 50 Mcg Tab 50 Mcg PO DAILY Melatonin 5 Mg Tab 5 Mg PO HS Review of Systems Psychiatric: DENIES: Anxiety, Confusion, Mood changes, Depression, Hallucinations, Agitation, Suicidal Ideation, Homicidal Ideation, Delusions Except as stated in HPI: all other systems reviewed are Neg Mental Status Examination Appearance: Disheveled Consciousness: Alert Orientation: x4 Motor Activity: Normal gait Speech: Unremarkable Language: Adequate Fund of Knowledge: Adequate Attention and Concentration: Adequate Memory: Unremarkable Mood: Appropriate Affect: Appropriate Thought Process & Associations: Intact, Logical, Goal directed Thought Content: Appropriate Hallucination Type: None Delusion Type: None Suicidal Ideation: No Suicidal Plan: No Suicidal Intention: No Homicidal Ideation: No Homicidal Plan: No Homicidal Intention: No Insight: Fair Judgment: Adequate MDM Medical Decision Making Medical Record Reviewed: Yes Assessment/Plan 63-year-old , , homeless male with history of alcohol abuse who in context of relapse and being terminated from [facility] and while intoxicated presented to the emergency department accompanied by his friends reporting he had thoughts of either jumping in front of a train or jumping from the intrastate. Patient was placed under an involuntary status by ED provider. On arrival to [facility] ED he states he wants to kill himself and he is trying to drink himself to . His blood alcohol level on arrival to the ED was 381. Patient was allowed to sober up clinically in controlled environment. There was no evidence of any suicidality or homicidality while under observation. The patient is future oriented he wants to go back to either [facility] or another sober living facility. He also has [facility] a referral to substance abuse treatment clinic through [facility]. At this time the patient does not meet criteria to remain under the Ortega act and it will be lifted. Psychiatrically clear for discharge from the ED. Orders Orders Diet Regular Basic (02/10/18 Dinner) Alcohol Withdrawal Asmt-Ciwa [id number] (02/10/18 19:12) Flumazenil Inj (Romazicon Inj) (02/10/18 19:15) Lorazepam (Ativan) (02/10/18 19:15) Lorazepam Inj (Ativan Inj) (02/10/18 19:15) Lorazepam (Ativan) (02/10/18 19:15) Lorazepam Inj (Ativan Inj) (02/10/18 19:15) Lorazepam Inj (Ativan Inj) (02/10/18 19:15) Lorazepam Inj (Ativan Inj) (02/10/18 19:15) Diet Regular Basic (02/11/18 Breakfast) Diet Regular Basic (02/11/18 Lunch) Results Vital Signs Date Time Temp Pulse Resp B/P (MAP) Pulse Ox O2 Delivery O2 Flow Rate FiO2 02/11/18 06:14 98 18 144/86 (105) 97 Room Air 02/11/18 00:10 76 18 146/82 (103) 96 Room Air 02/10/18 17:32 84 18 149/86 (107) 97 Room Air Laboratory Tests Test 02/10/18 20:39 Urine Opiates Screen NEG Urine Barbiturates Screen NEG Urine Amphetamines Screen NEG Urine Benzodiazepines Screen NEG Urine Cocaine Screen NEG Urine Cannabinoids Screen NEG Diagnosis Primary Impression: Alcohol dependence with acute alcoholic intoxication without complication Additional Impression: Alcohol-induced mood disorder Psychiatrically Cleared: Yes Med/ Other Pt Specific Info: No Meds Exist/No RX given Disposition: 01 DISCHARGE HOME Condition: Stable Problem Qualifiers Jacqueline Cabrera February 11, 2018 10:43
--- NOTE | 2018-02-11 11:27 | PD ---
Physical Exam Date Seen by Provider: February 11, 2018 Time Seen by Provider: 11:25 Narrative 63-year-old male previously brought in from [facility], with suicidal ideation after being terminated secondary to her relapse, was medically cleared for psychiatric evaluation, and has been seen by psychiatric staff and deemed psychiatrically stable for discharge at this time. Patient is to return to [facility] on his own accord. He remains medically stable for discharge at this time. Data Data Last Documented VS Vital Signs Date Time Temp Pulse Resp B/P (MAP) Pulse Ox O2 Delivery O2 Flow Rate FiO2 02/11/18 06:14 98 18 144/86 (105) 97 Room Air 02/10/18 05:43 97.5 Orders Orders Complete Blood Count With Diff (02/10/18 00:01) Thyroid Stimulating Hormone (02/10/18 00:01) Basic Metabolic Panel (Bmp) (02/10/18 00:01) Psych Screen (02/10/18 00:01) Drug Screen, Random Urine (02/10/18 00:01) Alcohol (Ethanol) (02/10/18 00:01) Salicylates (Aspirin) (02/10/18 00:01) Tylenol (Acetaminophen) (02/10/18 00:01) Ondansetron Odt (Zofran Odt) (02/10/18 00:15) Sodium Chlor 0.9% 1000 Ml Inj (Ns 1000 M (02/10/18 00:15) Thiamine Inj (Thiamine Inj) (02/10/18 00:15) Diet Regular Basic (02/10/18 Breakfast) Diet Regular Basic (02/10/18 Lunch) Diet Regular Basic (02/10/18 Dinner) Alcohol Withdrawal Asmt-Ciwa Q4HX18 (02/10/18 19:12) Flumazenil Inj (Romazicon Inj) (02/10/18 19:15) Lorazepam (Ativan) (02/10/18 19:15) Lorazepam Inj (Ativan Inj) (02/10/18 19:15) Lorazepam (Ativan) (02/10/18 19:15) Lorazepam Inj (Ativan Inj) (02/10/18 19:15) Lorazepam Inj (Ativan Inj) (02/10/18 19:15) Lorazepam Inj (Ativan Inj) (02/10/18 19:15) Diet Regular Basic (02/11/18 Breakfast) Diet Regular Basic (02/11/18 Lunch) Labs Laboratory Tests Test 02/10/18 00:35 02/10/18 20:39 White Blood Count 5.7 TH/MM3 Red Blood Count 4.72 MIL/MM3 Hemoglobin 12.9 GM/DL Hematocrit 39.0 % Mean Corpuscular Volume 82.7 FL Mean Corpuscular Hemoglobin 27.3 PG Mean Corpuscular Hemoglobin Concent 33.0 % Red Cell Distribution Width 18.1 % Platelet Count 212 TH/MM3 Mean Platelet Volume 7.6 FL Neutrophils (%) (Auto) 62.2 % Lymphocytes (%) (Auto) 27.1 % Monocytes (%) (Auto) 8.0 % Eosinophils (%) (Auto) 2.0 % Basophils (%) (Auto) 0.7 % Neutrophils # (Auto) 3.5 TH/MM3 Lymphocytes # (Auto) 1.5 TH/MM3 Monocytes # (Auto) 0.5 TH/MM3 Eosinophils # (Auto) 0.1 TH/MM3 Basophils # (Auto) 0.0 TH/MM3 CBC Comment DIFF FINAL Differential Comment Blood Urea Nitrogen 13 MG/DL Creatinine 0.74 MG/DL Random Glucose 102 MG/DL Calcium Level 8.8 MG/DL Sodium Level 143 MEQ/L Potassium Level 3.2 MEQ/L Chloride Level 99 MEQ/L Carbon Dioxide Level 31.7 MEQ/L Anion Gap 12 MEQ/L Estimat Glomerular Filtration Rate 108 ML/MIN Thyroid Stimulating Hormone 3rd Gen 1.640 uIU/ML Salicylates Level LESS THAN 1.7 MG/DL Acetaminophen Level LESS THAN 2.0 MCG/ML Ethyl Alcohol Level 381 MG/DL Urine Opiates Screen NEG Urine Barbiturates Screen NEG Urine Amphetamines Screen NEG Urine Benzodiazepines Screen NEG Urine Cocaine Screen NEG Urine Cannabinoids Screen NEG MDM Medical Record Reviewed: Yes Supervised Visit with ALEC: Yes Narrative Course 63-year-old male previously brought in from [facility], with suicidal ideation after being terminated secondary to her relapse, was medically cleared for psychiatric evaluation, and has been seen by psychiatric staff and deemed psychiatrically stable for discharge at this time. Patient is to return to [facility] on his own accord. He remains medically stable for discharge at this time. Diagnosis Primary Impression: Alcohol dependence with acute alcoholic intoxication without complication Additional Impression: Alcohol-induced mood disorder Patient Instructions: General Instructions Disposition: 01 DISCHARGE HOME Condition: Leonides Mccann February 11, 2018 11:27
== END 2018-02-11 12:06 | disposition home or self-care (01) ==
LOC: NEPD 22:19 → NEPJ 02-11 12:06
DX: F10.220 Alcohol dependence with intoxication, uncomplicated (principal); F10.24 Alcohol dependence with alcohol-induced mood disorder; E03.9 Hypothyroidism, unspecified; Y90.8 Blood alcohol level of 240 mg/100 ml or more; Z79.899 Other long term (current) drug therapy
CPT/HCPCS: 80048; 80307; 84443; 85025; 96365; 99284; J3411; J7030